=== PATIENT | female | born 1940 | race Caucasian/White ===

== ENCOUNTER 2017-09-10 07:10 | Outpatient (CLI) | payer OTHER | END 2017-09-10 07:22 | disposition home or self-care (01) | LOC: NUCLEAR 07:10 → EDBD 07:10 → NUCLEAR 07:22 | DX: R10.11 Right upper quadrant pain (principal); K80.20 Calculus of gallbladder without cholecystitis without obstruction | CPT/HCPCS: 78227; A9537; J2805 ==